=== PATIENT | female | born 1965 | race Caucasian/White ===

== ENCOUNTER 2019-10-09 10:40 | Outpatient (CLI) | payer BC ==
--- NOTE | 2019-10-09 11:49 | ULT ---
Renal ultrasound with renal artery Doppler evaluation CLINICAL INDICATION: Chronic kidney disease and hypertension. COMPARISON: None FINDINGS: Right kidney: There is no evidence of a renal mass, renal calculus, or hydronephrosis seen. The right kidney measures 10.1 cm x 4.5 cm. Left kidney: There is no evidence of a renal mass, renal calculus, or hydronephrosis. The left kidney measures 10.3 cm x 4.1 cm. Urinary bladder: Normal in appearance. Prevoid urinary bladder volume is 292 mL with no significant p ost void residual. Renal Doppler evaluation with spectral analysis and color flow evaluation: The peak systolic velocity in the main right renal artery is 43 cm/s with peak systolic velocity in t he left main renal artery 56 cm/s. The peak systolic velocity of the abdominal aorta is 54 cm/s. Right renal artery to aorta ratio is 0.79 and on the left the ratio is 1.03. A normal ratio is less t kemp 3. The hiatus resistive index right kidney is 0.7 with highest resistive index on the left of 0.67. Normal resistive index is less than 0.7. IMPRESSION: 1. No evidence of hydronephrosis, and the kidneys demonstrate a normal sonographic appearance bilater ally. 2. No evidence of a post void residual. 3. The renal artery to aorta ratios and resistive indices are not elevated.
== END 2019-10-09 10:41 | disposition home or self-care (01) ==
LOC: NAV ULT 10:40
PROVIDERS: ATTEND Internal Medicine Nephrology
DX: I12.9 Hypertensive chronic kidney disease with stage 1 through stage 4 chronic kidney disease, or unspecified chronic kidney disease (principal); N18.3 Chronic kidney disease, stage 3 (moderate)
CPT/HCPCS: 76770; 93975

== ENCOUNTER 2022-01-06 15:52 | Outpatient (CLI) | payer BC, OTHER, SELFPAY | END 2022-01-06 15:53 | disposition home or self-care (01) | LOC: NAV RAD 15:52 | PROVIDERS: ATTEND Nurse Practitioner Family | DX: M79.671 Pain in right foot (principal); M79.672 Pain in left foot; M19.072 Primary osteoarthritis, left ankle and foot; M19.071 Primary osteoarthritis, right ankle and foot ==

== ENCOUNTER 2025-08-23 16:17 | Outpatient (CLI) | payer OTHER | END 2025-08-23 16:18 | disposition home or self-care (01) | LOC: NAV RAD 16:17 | PROVIDERS: ATTEND Nurse Practitioner Family | DX: Z01.818 Encounter for other preprocedural examination (principal) | CPT/HCPCS: 71046; 93005; 93010 ==